=== PATIENT | female | born 1985 | race Two or more races ===

== ENCOUNTER 2019-01-11 09:52 | Emergency (ER) | payer MEDICAID, OTHER ==
[~2019-01-11] VITALS: Ht 157.5 cm; Wt 101.2 kg
[2019-01-11] MEDS ORDERED: KETOROLAC TROMETH 60MG/2ML VIAL IM ONE (11:30)
[2019-01-11 12:00] VITALS: BP 117/73
== END 2019-01-11 12:05 | disposition home or self-care (01) ==
LOC: ER 09:52
DX: M54.12 Radiculopathy, cervical region (principal)
CPT/HCPCS: 72040; 93005; 96372; 99283; J1885

== ENCOUNTER 2020-10-16 23:27 | Emergency (ER) | payer MEDICAID ==
[~2020-10-16] VITALS: Ht 157.5 cm; Wt 112.5 kg
[2020-10-17 02:03] LABS: Basophils # (auto) 0.1 10 ^3/uL (0-0.2); Basophils % (auto) 0.8 % (0.0-2.0); Eosinophils # (auto) 0.3 10 ^3/uL (0-0.8); Eosinophils % (auto) 2.2 % (0.0-7.0); Hemoglobin 14.9 g/dL (12.2-16.2); Lymphocytes # (auto) 4.8 10 ^3/uL (0.4-5.4); Lymphocytes % (auto) 34.8 % (10.0-50.0); Mean Corpuscular Hgb Conc. 33.1 g/dL (32.0-36.0); Mean Corpuscular Volume 84.6 fL (80.0-100.0); Monocytes # (auto) 0.9 10 ^3/uL (0-1.3); Monocytes % (auto) 6.2 % (0.0-12.0); Neutrophils # (auto) 7.7 10 ^3/uL (1.6-8.6); Nucleated Red Blood Cells % 0.2 %; Red Blood Cells 5.33 10^6/uL (4.0-5.20); Red Cell Distribution Width 13.1 % (11.8-14.3); White Blood Cell 13.8 10^3/uL (4.4-10.8)
[2020-10-17 02:15] LABS: Urine Bacteria FEW /hpf (None Seen); Urine Blood Negative /uL (Negative); Urine Mucus FEW (None Seen); Urine Specific Gravity 1.015 (1.001-1.035); Urine WBC 1 /hpf (0 - 5)
[2020-10-17 02:16] LABS: Albumin 3.6 g/dL (3.4-5.0); BUN/Creatinine Ratio 12.2; Calcium 9.4 mg/dL (8.5-10.1); INR 0.94 (0.9-1.15); Magnesium 2.4 mg/dL (1.6-2.6); Potassium 4.1 mmol/L (3.5-5.1)
[2020-10-17 02:19] LABS: Bilirubin, Total 0.2 mg/dL (0.2-1.0); Total Protein 9.1 g/dL (6.4-8.2)
[2020-10-17 06:25] VITALS: BP 139/79
== END 2020-10-17 06:36 | disposition home or self-care (01) ==
LOC: ER 23:27
DX: R10.32 Left lower quadrant pain (principal)
CPT/HCPCS: 36415; 74176; 80053; 81001; 81025; 82150; 83690; 83735; 85025; 85610

== ENCOUNTER 2023-07-10 14:29 | Emergency (ER) | payer SELFPAY ==
[~2023-07-10] VITALS: Ht 157.5 cm; Wt 109.6 kg
[2023-07-10 15:30] LABS: Basophils # (auto) 0.1 10 ^3/uL (0-0.2); Eosinophils # (auto) 0.2 10 ^3/uL (0-0.8); Hemoglobin 8.6 g/dL (12.2-16.2); Lymphocytes # (auto) 3.6 10 ^3/uL (0.4-5.4); Neutrophils # (auto) 9.2 10 ^3/uL (1.6-8.6); Nucleated Red Blood Cells % 0.1 %; White Blood Cell 13.7 10^3/uL (4.4-10.8)
[2023-07-10 15:31] LABS: Basophils % (auto) 0.7 % (0.0-2.0); Eosinophils % (auto) 1.2 % (0.0-7.0); Hematocrit 27.7 % (36.0-46.0); Mean Corpuscular Hemoglobin 21.6 pg (28.0-32.0); Mean Corpuscular Hgb Conc. 30.9 g/dL (32.0-36.0); Mean Corpuscular Volume 69.8 fL (80.0-100.0); Monocytes # (auto) 0.6 10 ^3/uL (0-1.3); Monocytes % (auto) 4.6 % (0.0-12.0); Neutrophils % (auto) 67.5 % (37.0-80.0); Red Blood Cells 3.97 10^6/uL (4.0-5.20)
[2023-07-10 15:39] LABS: Chloride 104 mmol/L (98-107); Potassium 3.9 mmol/L (3.5-5.1); Sodium 138 mmol/L (136-145)
[2023-07-10 15:40] LABS: Anion Gap 7 (5-15); Calcium 9.7 mg/dL (8.5-10.1); Carbon Dioxide 27 mmol/L (20-30)
[2023-07-10 15:45] LABS: BUN/Creatinine Ratio 14.3 (10.0-20.0); Blood Urea Nitrogen 8 mg/dL (9-23); Glucose 79 mg/dL (74-106)
[2023-07-10] MEDS ORDERED: FERR1TAB36 PO (16:11)
[2023-07-10 16:22] VITALS: BP 124/75; PULSE 88; RESP 16; TEMP 98.2; O2SAT 96
== END 2023-07-10 16:51 | disposition home or self-care (01) ==
LOC: ER 14:29
DX: D64.9 Anemia, unspecified (principal); Z98.890 Other specified postprocedural states; Z79.899 Other long term (current) drug therapy
CPT/HCPCS: 36415; 80048; 85025; 86850; 86900; 86901

== ENCOUNTER 2024-04-25 17:07 | Emergency (ER) | payer OTHER, SELFPAY ==
[~2024-04-25 17:07] MED LIST: FERR1TAB36 PO
--- NOTE | 2024-04-25 18:22 | ED.PDOC ---
History of Present Illness HPI Comments 39-year-old female came to ER for body pains. Patient has history of hypothyroidism and Nadine disease. She takes 112 mcg of levothyroxine as advised. For the past 3 weeks, she has been experiencing back pains, generalized body pains, in numbness to both upper extremities. Patient was sent here primary care provider to check her thyroid levels. Patient denies any fever nausea or vomiting. 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 all DOLL REPAIRER Hx Family History Family History: Family hx of DM Social History Smoker: Non-Smoker Alcohol: Denies ETOH Use Drugs: Denies Drug Use Lives In: Home Constitutional: reports: malaise; denies: chills, diaphoresis, fatigue, fever, sweats, weakness, others EENTM: denies: blurred vision, double vision, ear bleeding, ear discharge, ear drainage, ear pain, ear ringing, eye pain, eye redness, hearing loss, mouth pain, mouth swelling, nasal discharge, nose bleeding, nose congestion, nose pain, photophobia, tearing, throat pain, throat swelling, voice changes, others Respiratory: denies: cough, hemoptysis, orthopnea, SOB at rest, shortness of breath, SOB with excertion, stridor, wheezing, others Cardiovascular: denies: chest pain, dizzy spells, diaphoresis, Dyspnea on exertion, edema, irregular heart beat, left arm pain, lightheadedness, palpitations, PND, syncope, others Gastrointestinal: denies: abdomen distended, abdominal pain, blood streaked bowels, constipated, diarrhea, dysphagia, difficulty swallowing, hematemesis, melena, nausea, poor appetite, poor fluid intake, rectal bleeding, rectal pain, vomiting, others Genitourinary: denies: abnormal vagina bleeding, burning, dyspareunia, dysuria, flank pain, frequency, hematuria, incontinence, pain, , vagina discharge, urgency, others Neurological: reports: numbness; denies: dizziness, fainting, headache, left sided numbness, left sided weakness, paresthesia, pre-existing deficit, right sided numbness, right sided weakness, seizure, speech problems, tingling, tremors, weakness, others Musculoskeletal: reports: back pain; denies: gout, joint pain, joint swelling, muscle pain, muscle stiffness, neck pain, others Integumetry: denies: bruises, change in color, change in hair/nails, dryness, laceration, lesions, lumps, rash, wounds, others Allergic/Immunocompromised: denies: Difficulty Healing, Frequent Infections, Hives, Itching, others Hematologic/Lymphatic: denies: anemia, blood clots, easy bleeding, easy bruising, swollen glands, others Endocrine: denies: excessive hunger, excessive sweating, excessive thirst, excessive urination, flushing, intolerance to cold, intolerance to heat, unexplained weight gain, unexplained weight loss, others Psychiatric: denies: anxiety, bipolar disorder, depression, hopeless, panic disorder, schizophrenia, sleepless, suicidal, others Physical Exam General Appearance: Moderate Distress ([id number] distress due to neck and back pain concerns as well as hand tingling.), Normal HEENT: Normal ENT Inspection, Pharynx Normal, TMs Normal Neck: Full Range of Motion, Non-Tender, Normal, Normal Inspection Respiratory: Chest Non-Tender, Lungs Clear, No Accessory Muscle Use, No Respiratory Distress, Normal Breath Sounds Cardiovascular: No Edema, No JVD, No Murmur, No Gallop, Normal Peripheral Pulses, Regular Rate/Rhythm Breast Exam: Deferred Gastrointestinal: No Organomegaly, Non Tender, No Pulsatile Mass, Normal Bowel Sounds, Soft Genitalia: Deferred Pelvic: Deferred Rectal: Deferred Extremities: No calf tenderness, Normal capillary refill, No pedal edema, Other ( Patient displays flushed bilateral hands as well as a slight flushing of her face.) Musculoskeletal : Location: Bilateral Extremity Location: Back ( Diffuse tenderness to palpation throughout the lower cervical and upper thoracic region. No signs of trauma. Difficult to assess due to body habitus.) Apperance: Normal Neurologic: Alert, No Motor Deficits, Normal Affect, Normal Mood, No Sensory Deficits Cerebellar Function: Normal Reflexes: Normal Skin: Dry, Normal Color, Warm Lymphatic: No Adenopathy Was a procedure done? Was a procedure done?: No Differential Dx Considerations may include: Anemia, electrolyte imbalance, hypothyroidism, Nadine's disease X-Ray, Labs, Meds, VS Lab Test 04/25/24 18:31 Range/Units White Blood Count 12.4 H 4.4-10.8 10^3/uL Red Blood Count 5.41 H 4.0-5.20 10^6/uL Hemoglobin 14.2 12.2-16.2 g/dL Hematocrit 43.3 36.0-46.0 % Mean Corpuscular Volume 80.0 80.0-100.0 fL Mean Corpuscular Hemoglobin 26.2 L 28.0-32.0 pg Mean Corpuscular Hemoglobin Concent 32.8 32.0-36.0 g/dL Red Cell Distribution Width 15.0 H 11.8-14.3 % Platelet Count 250 140-450 10^3/uL Mean Platelet Volume 8.8 6.9-10.8 fL Neutrophils (%) (Auto) 60.8 37.0-80.0 % Lymphocytes (%) (Auto) 31.1 10.0-50.0 % Monocytes (%) (Auto) 5.7 0.0-12.0 % Eosinophils (%) (Auto) 1.6 0.0-7.0 % Basophils (%) (Auto) 0.8 0.0-2.0 % Neutrophils # (Auto) 7.6 1.6-8.6 10 ^3/uL Lymphocytes # (Auto) 3.9 0.4-5.4 10 ^3/uL Monocytes # (Auto) 0.7 0-1.3 10 ^3/uL Eosinophils # (Auto) 0.2 0-0.8 10 ^3/uL Basophils # (Auto) 0.1 0-0.2 10 ^3/uL Nucleated Red Blood Cells 0.1 % Sodium Level 137 136-145 mmol/L Potassium Level 3.6 3.5-5.1 mmol/L Chloride Level 103 98-107 mmol/L Carbon Dioxide Level 25 20-31 mmol/L Anion Gap 9 5-15 Blood Urea Nitrogen 9 9-23 mg/dL Creatinine 0.58 0.550-1.02 mg/dL Glomerular Filtration Rate Calc 117 >90 mL/min BUN/Creatinine Ratio 15.5 10.0-20.0 Serum Glucose 75 74-106 mg/dL Calcium Level 10.0 8.7-10.4 mg/dL Thyroid Stimulating Hormone (TSH) 4.93 H 0.55-4.78 uIU/mL X-Ray, Labs, Meds, VS Comment All studies performed the ED were evaluated by me personally. serum laboratories were only remarkable for an elevated TSH. I will adjust the patient's levothyroxine, but the patient needs to follow up with the primary care provider for long-term management of her thyroid issues. Time of 1ST Reevaluation: 20:19 Reevaluation 1ST: Improved Consultation: PCP, Other ( Rheumatology) Patient Education/Counseling: Diagnosis, Treatment Family Education/Counseling: Diagnosis, Treatment, No Family Present Departure 1 Departure Time of Disposition: 20:20 Impression: Primary Impression: Hypothyroidism Additional Impression: Back pain Disposition: HOME / SELF CARE / HOMELESS Condition: Stable Additional Instructions: Advised patient to utilize the levothyroxine as directed as well as pain medication as needed. Patient needs to follow up with the primary care provider for long-term management of her thyroid concerns. e-Prescriptions Tramadol Hcl (Tramadol Hcl) 50 Mg Tab 50 MG PO Q8HP PRN, #10 TAB Prov: ELISEO ROCHA 04/25/24 Ibuprofen Micronized (Ibuprofen) 800 Mg Tab 800 MG PO Q8HP PRN, #20 TAB Prov: ELISEO ROCHA 04/25/24 Levothyroxine Sodium (Levothyroxine Sodium) 125 Mcg Tab 1 TAB PO DAILY, #30 TAB 0 Refills Prov: ELISEO ROCHA 04/25/24 Discharged With: Self, Friend Critical Care Note Critical Care Time?: No Stability Stability form required: No Heart Score Heart Score: Heart Score Response (Comments) Value History N/A 0 EKG N/A 0 Age N/A 0 Risk Factors N/A 0 Troponin N/A 0 Total 0 I personally scribed for ELISEO ROCHA ([email or web address]) on 04/25/24 at 18:22. Electronically submitted by Jamel Silver ([email or web address]). ELISEO ROCHA Apr 25, 2024 18:22
[2024-04-25 19:01] LABS: Basophils # (auto) 0.1 10 ^3/uL (0-0.2); Basophils % (auto) 0.8 % (0.0-2.0); Eosinophils # (auto) 0.2 10 ^3/uL (0-0.8); Eosinophils % (auto) 1.6 % (0.0-7.0); Hematocrit 43.3 % (36.0-46.0); Hemoglobin 14.2 g/dL (12.2-16.2); Lymphocytes # (auto) 3.9 10 ^3/uL (0.4-5.4); Lymphocytes % (auto) 31.1 % (10.0-50.0); Mean Corpuscular Hemoglobin 26.2 pg (28.0-32.0); Mean Corpuscular Hgb Conc. 32.8 g/dL (32.0-36.0); Monocytes # (auto) 0.7 10 ^3/uL (0-1.3); Monocytes % (auto) 5.7 % (0.0-12.0); Neutrophils # (auto) 7.6 10 ^3/uL (1.6-8.6); Neutrophils % (auto) 60.8 % (37.0-80.0); Nucleated Red Blood Cells % 0.1 %; Platelet Count (auto) 250 10^3/uL (140-450); Red Blood Cells 5.41 10^6/uL (4.0-5.20); White Blood Cell 12.4 10^3/uL (4.4-10.8)
[2024-04-25 19:06] LABS: Chloride 103 mmol/L (98-107); Potassium 3.6 mmol/L (3.5-5.1); Sodium 137 mmol/L (136-145)
[2024-04-25 19:07] LABS: Anion Gap 9 (5-15); Carbon Dioxide 25 mmol/L (20-31)
[2024-04-25 19:12] LABS: BUN/Creatinine Ratio 15.5 (10.0-20.0); Glucose 75 mg/dL (74-106)
[2024-04-25 19:14] LABS: Blood Urea Nitrogen 9 mg/dL (9-23)
[2024-04-25] MEDS ORDERED: LEVO125T7 PO (20:22)
[2024-04-25] MEDS ORDERED: IBUP-1455 PO (20:22)
[2024-04-25] MEDS ORDERED: TRAM50TA2 PO (20:22)
[2024-04-25] MEDS: KETOROLAC TROMETH 60MG/2ML VIAL IM ONE (20:23)
[2024-04-25 20:27] VITALS: BP 123/79; PULSE 74; RESP 19; TEMP 98.4; O2SAT 97
== END 2024-04-25 20:34 | disposition home or self-care (01) ==
LOC: ER 17:07
DX: E03.9 Hypothyroidism, unspecified (principal); M54.9 Dorsalgia, unspecified; E06.3 Autoimmune thyroiditis
CPT/HCPCS: 36415; 80048; 84443; 85025; 96372; 99283; J1885